=== PATIENT | female | born 1990 ===

== ENCOUNTER 2021-01-01 18:07 | Emergency (ER) | payer OTHER, SELFPAY ==
[2021-01-01 18:58] LABS: COVID-19 Test Positive (Negative); IDNOW Serial# 9DD0AD1C
[2021-01-01 19:29] VITALS: BP 133/82; PULSE 83; RESP 18; TEMP 35.9; O2SAT 98; BMI 25.6
--- NOTE | 2021-01-01 19:35 | ED_ITS ---
HPI - Nausea/Vomiting/Diarrhea General Chief complaint: Nausea/Vomiting/Diarrhea Stated complaint: covid + Time Seen by Provider: 01/01/21 19:35 Source: patient Mode of arrival: ambulatory Limitations: no limitations History of Present Illness HPI Narrative: Patient early likely 6 weeks tested positive at home test been sick for last 3 days tested positive in outpatient clinic for COVID-19 coughing no significant shortness of breath came here for increased nausea and vomiting and diarrhea for last 3 days unable take anything p.o.. No abdominal pain no vaginal bleed Related Data Previous Rx's Medication Instructions Recorded ondansetron 4 mg disintegrating 4 mg PO Q6-8H PRN #15 tab 01/01/21 tablet Allergies Allergy/AdvReac Type Severity Reaction Status Date / Time No Known Allergies Allergy Mild N/A Unverified 01/17/20 16:48 Review of Systems Review of Systems: Yes all other systems are reviewed and are negative PMFSH Social History Social History Advance Directives: No Advance Directives Information Provided: No Patient : Yes (unconfirmed) Physical Exam Vital Signs: Vital Signs: Last Vital Signs Temp 96.6 F L 01/01/21 19:29 Pulse 83 01/01/21 19:29 Resp 18 01/01/21 19:29 BP 133/82 01/01/21 19:29 Pulse Ox 98 01/01/21 19:29 Body Mass Index 25.6 Appearance: Alert. Oriented X3. No acute distress. Eyes: No pallor or icterus ENT: Pharynx normal. Oral Mucosa moist Neck: Normal inspection. Neck supple. CVS: Normal heart rate and rhythm. Pulses normal. Respiratory: No respiratory distress. Equal air entry bilateral, no wheezing/rales/rhonchi Abdomen: Soft and nontender. Bowel sounds are present, no mass palpable, no CVA tenderness Skin: Skin warm and dry. Normal skin color. Normal skin turgor. Extremities: No lower extremity edema. No calf tenderness Neuro: Oriented X 3. MDM - Nausea/Vomiting/Diarrhea MDM Narrative Medical decision making narrative: Patient felt better after 2 L of IV fluids taking p.o. fluids will discharge patient home Lab Data Attestation: I reviewed the patient's lab results. Result diagrams: 01/01/21 20:35 01/01/21 20:35 Labs: Lab Results 01/01/21 01/01/21 01/01/21 Range/Units 18:30 18:38 20:35 WBC 5.4 (4.8-10.8) X10*3/uL RBC 4.74 (4.20-5.50) X10*6/uL Hgb 15.9 (12.0-16.0) g/dl Hct 45.8 (37-47) % MCV 96.6 (80-98) fL MCH 33.5 H (27.0-33.0) pg MCHC 34.7 (31.0-35.0) g/dl RDW 11.4 (11.0-16.0) % Plt Count 140 L (160-400) X10*3/uL MPV 10.2 (9.4-12.3) fL Immature Gran % (Auto) 0.2 (0.0-0.4) % Neut % (Auto) 64.8 (45-73) % Lymph % (Auto) 25.6 (20-40) % [place] % (Auto) 9.4 (2-11) % Eos % (Auto) 0.0 (0-4) % Baso % (Auto) 0.0 (0-2) % Lymph # (Auto) 1.4 (1.2-4.9) X10*3/uL [place] # (Auto) 0.5 (0.1-1.2) X10*3/uL Eos # (Auto) 0.0 (0.0-0.4) X10*3/uL Baso # (Auto) 0.0 (0.0-0.2) X10*3/uL Abs Immat Gran (auto) 0.01 (0.00-0.03) X10*3/uL Absolute Neuts (auto) 3.5 (2.0-8.3) X10*3/uL Absolute Nucleated RBC 0.000 (0.0-0.012) X10*3/uL Nucleated RBC % (auto) 0.0 (0.0-0.2) /100WBC Sodium (135-145) mmol/L Potassium (3.3-5.1) mmol/L Chloride (96-108) mmol/L Carbon Dioxide (22-29) mmol/L Anion Gap (12-20) BUN (9-16) mg/dL Creatinine (0.5-1.4) mg/dL Estim Creat Clear Calc Estimated GFR Random Glucose (60-115) mg/dL Calcium (8.4-10.2) mg/dL Beta HCG, Quant mIU/mL Urine Color YELLOW Urine Appearance HAZY Urine pH 6.0 (5.0-8.0) Ur Specific [place] >= 1.030 H (1.005-1.025) Urine Protein 2+ H (NEG-TRACE) MG/DL Urine Glucose (UA) NEG (NEG) MG/DL Urine Ketones >=80 (NEG) MG/DL Urine Blood NEG (NEG) Urine Nitrite NEG (NEG) Ur Leukocyte Esterase NEG (NEG) Urine RBC 0 (0) /HPF Urine WBC 0 (0-4) /HPF Ur Squamous Epith Cells 1+ /LPF Urine Bacteria 1+ /LPF Urine Mucus TRACE /LPF COVID-19 ([facility]IA[facility]) Positive A (Negative) COVID-19 Clin Com See Note 01/01/21 01/01/21 Range/Units 20:35 20:35 WBC (4.8-10.8) X10*3/uL RBC (4.20-5.50) X10*6/uL Hgb (12.0-16.0) g/dl Hct (37-47) % MCV (80-98) fL MCH (27.0-33.0) pg MCHC (31.0-35.0) g/dl RDW (11.0-16.0) % Plt Count (160-400) X10*3/uL MPV (9.4-12.3) fL Immature Gran % (Auto) (0.0-0.4) % Neut % (Auto) (45-73) % Lymph % (Auto) (20-40) % [place] % (Auto) (2-11) % Eos % (Auto) (0-4) % Baso % (Auto) (0-2) % Lymph # (Auto) (1.2-4.9) X10*3/uL [place] # (Auto) (0.1-1.2) X10*3/uL Eos # (Auto) (0.0-0.4) X10*3/uL Baso # (Auto) (0.0-0.2) X10*3/uL Abs Immat Gran (auto) (0.00-0.03) X10*3/uL Absolute Neuts (auto) (2.0-8.3) X10*3/uL Absolute Nucleated RBC (0.0-0.012) X10*3/uL Nucleated RBC % (auto) (0.0-0.2) /100WBC Sodium 140 (135-145) mmol/L Potassium 4.1 (3.3-5.1) mmol/L Chloride 105 (96-108) mmol/L Carbon Dioxide 23 (22-29) mmol/L Anion Gap 16 (12-20) BUN 9 (9-16) mg/dL Creatinine 0.52 (0.5-1.4) mg/dL Estim Creat Clear Calc 138.5 Estimated GFR > 60 Random Glucose 87 (60-115) mg/dL Calcium 9.4 (8.4-10.2) mg/dL Beta HCG, Quant 63501 mIU/mL Urine Color Urine Appearance Urine pH (5.0-8.0) Ur Specific [place] (1.005-1.025) Urine Protein (NEG-TRACE) MG/DL Urine Glucose (UA) (NEG) MG/DL Urine Ketones (NEG) MG/DL Urine Blood (NEG) Urine Nitrite (NEG) Ur Leukocyte Esterase (NEG) Urine RBC (0) /HPF Urine WBC (0-4) /HPF Ur Squamous Epith Cells /LPF Urine Bacteria /LPF Urine Mucus /LPF COVID-19 ([facility]EMIA[facility]) (Negative) COVID-19 Clin Com Discharge Plan Discharge Clinical Impression: Hyperemesis gravidarum, COVID-19 Patient Disposition: Home, Self-Care Instructions: Hyperemesis Gravidarum (ED), COVID-19 (Coronavirus Disease 2019) (ED) Additional Instructions: Status isolated as advised Medicine for nausea/vomiting Drink plenty of fluids Prescriptions: New ondansetron 4 mg tablet,disintegrating 4 mg PO Q6-8H PRN (Reason: nausea and vomiting) Qty: 15 RF: 0
[2021-01-01 20:25] LABS: Glucose Urine UA NEG (NEG); Leukocyte Esterase Urine NEG (NEG); Nitrite Urine NEG (NEG); Specific Gravity - Urine >= 1.030 (1.005-1.025); UACC Culture Trigger NO; Urine Blood NEG (NEG); Urine Ketones >=80 MG/DL (NEG); Urine Protein 2+ MG/DL (NEG-TRACE)
[2021-01-01 20:27] LABS: Appearance Urine HAZY; Color Urine YELLOW
[2021-01-01 20:35] LABS: Bacteria Urine 1+ /LPF; RBC Urine 0 /HPF (0); Squamous Epithelial Cell Urine 1+ /LPF; WBC Urine 0 /HPF (0-4)
[2021-01-01 20:36] LABS: Mucus Urine TRACE /LPF
[2021-01-01] MEDS: 0.9 % Sodium Chloride 1,000 ML 999 ML IVCONT ×2 (20:40→22:03)
[2021-01-01 20:41] LABS: Hemoglobin 15.9 g/dl (12.0-16.0); Imm Gran Abs Auto 0.01 X10*3/uL (0.00-0.03); Imm Gran Pct Auto 0.2 % (0.0-0.4); MANUAL DIFF FLAG NO; PLT CLUMP 1; SCAN SMEAR FLAG 1
[2021-01-01 20:42] LABS: Hematocrit 45.8 % (37-47); Lymphocytes Absolute Auto 1.4 X10*3/uL (1.2-4.9); Lymphocytes Percent Auto 25.6 % (20-40); Mean Corpuscular HGB Conc 34.7 g/dl (31.0-35.0); Mean Corpuscular Hemoglobin 33.5 pg (27.0-33.0); Mean Corpuscular Volume 96.6 fL (80-98); Mean Platelet Volume 10.2 fL (9.4-12.3); Monocytes Absolute Auto 0.5 X10*3/uL (0.1-1.2); Monocytes Percent Auto 9.4 % (2-11); Neutrophils Absolute Auto 3.5 X10*3/uL (2.0-8.3); Neutrophils Percent Auto 64.8 % (45-73); Platelet Count 140 X10*3/uL (160-400); Red Blood Count 4.74 X10*6/uL (4.20-5.50); Red Cell Distribution Width 11.4 % (11.0-16.0); White Blood Count 5.4 X10*3/uL (4.8-10.8)
[2021-01-01 20:53] LABS: Anion Gap 16 (12-20); Blood Urea Nitrogen 9 mg/dL (9-16); Calcium 9.4 mg/dL (8.4-10.2); Carbon Dioxide 23 mmol/L (22-29); Chloride 105 mmol/L (96-108); Creatinine Clr Calc Pharmacy 138.5; Estimated Glomerular Filt Rate > 60; Glucose Random 87 mg/dL (60-115); Potassium 4.1 mmol/L (3.3-5.1); Sodium 140 mmol/L (135-145)
[2021-01-01 21:01] LABS: HCG Quantitative 11911 mIU/mL
[2021-01-01] MEDS: ondansetron HCL 4 MG/2 ML VIAL IVPUSH (21:31)
== END 2021-01-01 23:24 | disposition home or self-care (01) ==
PROVIDERS: Emergency Provider Internal Medicine; PCP Internal Medicine
DX: O98.511 Other viral diseases complicating pregnancy, first trimester (principal); U07.1 COVID-19; Z3A.01 Less than 8 weeks gestation of pregnancy
CPT/HCPCS: 36415; 80048; 81001; 84702; 85025; 87635; 96361; 96374; 99284; J2405

== ENCOUNTER 2021-01-05 21:35 | Emergency (ER) | payer OTHER, SELFPAY ==
[2021-01-05 21:42] VITALS: BP 116/80; PULSE 82; O2SAT 100
[2021-01-05 21:45] VITALS: BP 100/67; PULSE 84; RESP 20; TEMP 36.6; O2SAT 98; BMI 27.4
--- NOTE | 2021-01-05 23:30 | ED.NAVMDI ---
HPI - Nausea/Vomiting/Diarrhea General Chief complaint: Nausea/Vomiting/Diarrhea Stated complaint: covid nausea vomiting Time Seen by Provider: 01/05/21 22:55 Source: patient Mode of arrival: ambulatory Limitations: no limitations History of Present Illness HPI Narrative: 30 y/o female who is 6 weeks presents with ongoing nausea and vomiting for the last 11 days. She was recently COVID positive over two weeks ago and still had a positive test a few days ago. She has had multiple ER visits here and at [place] for the same complaint. She has been taking zofran with only brief improvement. She is not able to tolerate PO without vomiting. She is sleeping a lot and has no energy. She last took zofran 5 hours ago. She does not want to be and has a planned termination at [facility] on Tuesday. MD elicited complaint: nausea and vomiting Onset (ago): day(s) (11) Description of vomiting: food contents, watery and bilious Associated nausea: Yes Associated abdominal pain: Yes Location of pain: diffuse Radiation: diffuse Pain consistency: intermittent Severity: severe Quality: aching Exacerbating factors: eating Relieving factors: none Associated symptoms: myalgias and malaise Related Data Previous Rx's Medication Instructions Recorded ondansetron 4 mg disintegrating 4 mg PO Q6-8H PRN #15 tab 01/01/21 tablet promethazine 25 mg rectal 25 mg DE Q6H PRN #12 ea 01/05/21 suppository Allergies Allergy/AdvReac Type Severity Reaction Status Date / Time No Known Allergies Allergy Mild N/A Unverified 01/05/21 21:51 Review of Systems Review of Systems: Constitutional: No Fever, No Chills ENT/Mouth: No sore throat, No Swallowing Difficulty Cardiovascular: No Chest Pain, No SOB, No Orthopnea, No Edema Respiratory: No Cough, No Sputum, No Wheezing, No dyspnea Gastrointestinal: + Nausea, + Vomiting, No Diarrhea, + abdominal Pain Genitourinary: No Dysuria, No Urinary Frequency, No Hematuria Musculoskeletal: No joint pain, No Myalgias Skin: No Skin Lesions, No rash Neuro:+ Weakness, No Numbness, No Dizziness, +Headache Psych: + Anxiety/Panic, + Depression Heme/Lymph: No Bruising, No Lymphadenopathy Endocrine: No Polyuria, No Polydipsia Gastrointestinal: Gastrointestinal: Reports nausea PMFSH Social History Social History Advance Directives: No Advance Directives Information Provided: No Patient : Yes Physical Exam Vital Signs: Vital Signs: Last Vital Signs Temp 97.9 F 01/05/21 21:45 Pulse 84 01/05/21 21:45 Resp 20 01/05/21 21:45 BP 100/67 01/05/21 21:45 Pulse Ox 98 01/05/21 21:45 Body Mass Index 27.4 Appearance: Alert. Oriented X3. No acute distress. Eyes: Pupils equal, round and reactive to light. ENT: Pharynx normal. Neck: Normal inspection. Neck supple. CVS: Normal heart rate and rhythm. Pulses normal. Respiratory: No respiratory distress. Breath sounds normal. Abdomen: Soft and nontender. +BS x4 Skin: Skin warm and dry. Normal skin color. Normal skin turgor. No rashes. Extremities: No lower extremity edema. Neuro: Oriented X 3. Generalized weakness noted. Nonfocal Course Course Course Narrative: 30 y/o female who is 6 weeks presents with persistent N/V. She was seen here for the same on 01/01. Labs were unremarkable. VS normal and exam is unremarkable. She is planning to terminate the on Tuesday. Will start trial of [place] phenergan until she can have her procedure. Tolerating ice chips. Stable for discharge home. Critical Care Time Critical Care Time Critical Care Time: No Discharge Plan Discharge Clinical Impression: Hyperemesis gravidarum Patient Disposition: Home, Self-Care Instructions: Hyperemesis Gravidarum (ED) Additional Instructions: Use the prescribed rectal suppository medication starting tomorrow morning. Stick to a bland diet, crackers and soup. Follow up with [facility]. Prescriptions: New promethazine 25 mg suppository 25 mg DE Q6H PRN (Reason: nausea and vomiting) Qty: 12 RF: 0 No Action ondansetron 4 mg tablet,disintegrating 4 mg PO Q6-8H PRN (Reason: nausea and vomiting) Qty: 15 RF: 0 Interventions: ED Discharge Assessment Last Done: 01/05/21 23:46 Discharge Date/Time: 01/06/21 00:00
[2021-01-05] MEDS: Ondansetron ODT 4 MG TAB.RAPDIS TRANSLINGU (23:43)
--- NOTE | 2021-01-05 23:45 | PC.NURSE ---
Pt medicated per JUN. Provided with DC paperwork. Awaiting transport home.
== END 2021-01-06 | disposition home or self-care (01) ==
PROVIDERS: Emergency Provider Emergency Medicine; PCP Internal Medicine
DX: O21.0 Mild hyperemesis gravidarum (principal); Z3A.01 Less than 8 weeks gestation of pregnancy
CPT/HCPCS: 99283

== ENCOUNTER 2022-01-17 06:27 | Emergency (ER) | payer OTHER, SELFPAY ==
--- NOTE | ~2022-01-17 | US_ITS ---
EXAMINATION: US OBSTETRICAL ULTRASOUND CLINICAL INFORMATION: Vaginal bleeding, 11 weeks COMPARISON: None. Transvaginal study. Real-time imaging by the director oracle. Exam demonstrates a gestational sac and a pole. Measures 0.95 cm. This may correlate to a 7 week . No heart activity is detected by the director oracle at this time No suspicious fluid collection. The right ovary is 3.8 x 2.2 x 2.2 cm. 1.5 x 2.1 cm cyst associated could be a corpus luteum. Left ovary is 2.2 x 1.6 x 1.7 cm. Appearing. No free fluid is seen. US/US OB pelvic and transvaginal IMPRESSION: There is a gestational sac and crown-rump length. By measurements this may correlate to a 7 week . No heart rate is detected by the director oracle at this time
[2022-01-17 06:51] VITALS: BP 124/61; PULSE 82; RESP 18; TEMP 36.7; O2SAT 99; BMI 26.5
[2022-01-17 09:10] LABS: MANUAL DIFF FLAG NO
[2022-01-17 09:11] LABS: Basophils Absolute Auto 0.1 X10*3/uL (0.0-0.2); Basophils Percent Auto 0.8 % (0-2); Eosinophils Absolute Auto 0.1 X10*3/uL (0.0-0.4); Eosinophils Percent Auto 1.4 % (0-4); Hematocrit 41.1 % (37.0-47.0); Hemoglobin 14.1 g/dl (12.0-16.0); Imm Gran Abs Auto 0.02 X10*3/uL (0.00-0.03); Imm Gran Pct Auto 0.3 % (0.0-0.4); Lymphocytes Absolute Auto 1.6 X10*3/uL (1.2-4.9); Lymphocytes Percent Auto 24.3 % (20-40); Mean Corpuscular HGB Conc 34.3 g/dl (31.0-35.0); Mean Platelet Volume 9.9 fL (9.4-12.3); Monocytes Absolute Auto 0.4 X10*3/uL (0.1-1.2); Monocytes Percent Auto 6.1 % (2-11); Neutrophils Absolute Auto 4.3 x10*3/uL (2.0-8.3); Neutrophils Percent Auto 67.1 % (45-73); Platelet Count 192 X10*3/uL (160-400); Red Blood Count 4.15 X10*6/uL (4.20-5.50); Red Cell Distribution Width 11.7 % (11.0-16.0); White Blood Count 6.4 X10*3/uL (4.8-10.8)
[2022-01-17 09:39] LABS: Alanine Aminotransferase 20 U/L (0-31); Albumin Level 4.3 g/dL (3.5-5.0); Alkaline Phosphatase 62 U/L (39-117); Anion Gap 12 (12-20); Aspartate Amino Transferase 16 U/L (5-31); Blood Urea Nitrogen 7 mg/dL (9-16); Calcium 9.2 mg/dL (8.4-10.2); Carbon Dioxide 26 mmol/L (22-29); Chloride 104 mmol/L (96-108); Creatinine Clr Calc Pharmacy 118.8; Estimated Glomerular Filt Rate > 60; Glucose Random 90 mg/dL (60-115); Potassium 3.9 mmol/L (3.3-5.1); Sodium 138 mmol/L (135-145); Total Protein 7.1 g/dL (6.5-8.0)
[2022-01-17 09:45] LABS: HCG Quantitative 10153 mIU/mL
--- NOTE | 2022-01-17 11:02 | ED.GENADULT ---
HPI - General Adult General Chief complaint: Vaginal Bleeding Stated complaint: vaginal bleeding, Time Seen by Provider: 01/17/22 08:50 Source: patient Mode of arrival: ambulatory Limitations: no limitations History of Present Illness HPI narrative: 31-year-old female presents to the ED for lower abdominal cramping and vaginal bleeding/spotting. Patient denies any vaginal lesions or vaginal pelvic trauma, any recent rough sex. Patient states she follows at [facility]. Patient denies any nausea or vomiting Related Data Previous Rx's Medication Instructions Recorded ondansetron 4 mg disintegrating 4 mg PO Q6-8H PRN nausea and 01/01/21 tablet vomiting #15 tabs promethazine 25 mg rectal 25 mg IN Q6H PRN nausea and 01/05/21 suppository vomiting #12 ea nitrofurantoin 100 mg PO Q12H 7 days #14 caps 01/17/22 monohydrate/macrocrystals 100 mg capsule (Macrobid) Allergies Allergy/AdvReac Type Severity Reaction Status Date / Time No Known Allergies Allergy Mild N/A Verified 01/17/22 06:51 Review of Systems Review of Systems: Lower abdominal cramping. Vaginal spotting/bleeding Yes all other systems are reviewed and are negative PMFSH Social History Social History Advance Directives: No Advance Directives Information Provided: No Physical Exam ED Vital Signs: Vital Signs - 24 hr 01/17/22 06:51 Temperature 98.1 F Pulse Rate 82 Respiratory Rate 18 Blood Pressure 124/61 Pulse Oximetry 99 Oxygen Delivery Method Room Air BMI result Body Mass Index 26.5 Const General: cooperative, healthy appearing, comfortable, no acute distress, well developed, alert, awake and Physically active Orientation/consciousness: patient oriented x3 HENMT Head: Yes normal to inspection, Yes No palpable skull fracture present, Yes normocephalic, Yes atraumatic and No abrasion Eyes General: appearance normal, both eyes and all related structures Neck Neck: Yes normal visual inspection, Yes full ROM, Yes no lymphadenopathy, Yes no meningeal signs, Yes trachea midline, Yes supple, No anterior neck swelling and No tender Chest Chest palpation & inspection: normal inspection of the chest and normal palpation of entire chest wall Resp Effort & Inspection: normal respiratory effort and able to speak in complete sentences Auscultation: clear to auscultation bilaterally Cardio Jugular venous distension: no JVD Heart sounds: S1 normal heart sound present and S2 normal heart sound present GI Inspection: Yes normal to inspection and No abdominal wall ecchymosis Palpation (GI): Soft to palpation, not firm, nontender, no guarding, not rigid and hepatosplenomegaly present General: No CVA tenderness and Yes no CVA tenderness Back/Spine/Pelvis Back: no CVA tenderness, No CVA tenderness and No back tenderness Skin General skin exam: no rashes or lesions noted and elasticity normal Neuro General: patient oriented x3, gait normal, no meningeal signs and CN's II-XI intact bilaterally Cranial nerves: Yes CN's II-XII intact bilaterally Extrem General: Yes normal to inspection and Yes full ROM Psych Appearance: grossly normal, well kempt and not disheveled Course Course Course Narrative: Patient is stable. Labs drawn. Patient is sent for ultrasound Reevaluation(s) Reevaluation #1: Patient labs are baseline. Patient's ultrasound shows 7 weeks gestational sac with pole but no heart rate. Patient refused pelvic exam. Patient follow-up with [facility]. Urine shows infection will be discharged with antibiotics. patient given copy of labs and imaging for follow up. Time: 12:55 Medical Decision Making MDM Narrative Medical decision making narrative: Threatened Lab Data Result diagrams: 01/17/22 09:05 01/17/22 09:05 Labs: Lab Results 01/17/22 01/17/22 01/17/22 Range/Units 09:05 09:05 09:05 WBC 6.4 (4.8-10.8) X10*3/uL RBC 4.15 L (4.20-5.50) X10*6/uL Hgb 14.1 (12.0-16.0) g/dl Hct 41.1 (37.0-47.0) % MCV 99.0 H (80.0-98.0) fL MCH 34.0 H (27.0-33.0) pg MCHC 34.3 (31.0-35.0) g/dl RDW 11.7 (11.0-16.0) % Plt Count 192 (160-400) X10*3/uL MPV 9.9 (9.4-12.3) fL Immature Gran % (Auto) 0.3 (0.0-0.4) % Neut % (Auto) 67.1 (45-73) % Lymph % (Auto) 24.3 (20-40) % [place] % (Auto) 6.1 (2-11) % Eos % (Auto) 1.4 (0-4) % Baso % (Auto) 0.8 (0-2) % Lymph # (Auto) 1.6 (1.2-4.9) X10*3/uL [place] # (Auto) 0.4 (0.1-1.2) X10*3/uL Eos # (Auto) 0.1 (0.0-0.4) X10*3/uL Baso # (Auto) 0.1 (0.0-0.2) X10*3/uL Abs Immat Gran (auto) 0.02 (0.00-0.03) X10*3/uL Absolute Neuts (auto) 4.3 (2.0-8.3) x10*3/uL Absolute Nucleated RBC 0.000 (0.0-0.012) X10*3/uL Nucleated RBC % (auto) 0.0 (0.0-0.2) /100WBC Sodium 138 (135-145) mmol/L Potassium 3.9 (3.3-5.1) mmol/L Chloride 104 (96-108) mmol/L Carbon Dioxide 26 (22-29) mmol/L Anion Gap 12 (12-20) BUN 7 L (9-16) mg/dL Creatinine 0.61 (0.5-1.4) mg/dL Estim Creat Clear Calc 118.8 Estimated GFR > 60 Random Glucose 90 (60-115) mg/dL Calcium 9.2 (8.4-10.2) mg/dL Total Bilirubin 1.0 (0.0-1.0) mg/dL AST 16 (5-31) U/L ALT 20 (0-31) U/L Alkaline Phosphatase 62 (39-117) U/L Total Protein 7.1 (6.5-8.0) g/dL Albumin 4.3 (3.5-5.0) g/dL Beta HCG, Quant 27443 mIU/mL Urine Color Urine Appearance Urine pH (5.0-9.0) Ur Specific [place] (1.005-1.025) Urine Protein (Neg-Trace) mg/dL Urine Glucose (UA) (Negative) mg/dL Urine Ketones (Negative) mg/dL Urine Blood (Negative) Urine Nitrite (Negative) Ur Leukocyte Esterase (Negative) Urine RBC (0-2) /HPF Urine WBC (0-5) /HPF Ur Squamous Epith Cells (0-2) /HPF Urine Bacteria (None Seen) Hyaline Casts (0-2) /LPF Blood Type B Positive 01/17/22 Range/Units 12:42 WBC (4.8-10.8) X10*3/uL RBC (4.20-5.50) X10*6/uL Hgb (12.0-16.0) g/dl Hct (37.0-47.0) % MCV (80.0-98.0) fL MCH (27.0-33.0) pg MCHC (31.0-35.0) g/dl RDW (11.0-16.0) % Plt Count (160-400) X10*3/uL MPV (9.4-12.3) fL Immature Gran % (Auto) (0.0-0.4) % Neut % (Auto) (45-73) % Lymph % (Auto) (20-40) % [place] % (Auto) (2-11) % Eos % (Auto) (0-4) % Baso % (Auto) (0-2) % Lymph # (Auto) (1.2-4.9) X10*3/uL [place] # (Auto) (0.1-1.2) X10*3/uL Eos # (Auto) (0.0-0.4) X10*3/uL Baso # (Auto) (0.0-0.2) X10*3/uL Abs Immat Gran (auto) (0.00-0.03) X10*3/uL Absolute Neuts (auto) (2.0-8.3) x10*3/uL Absolute Nucleated RBC (0.0-0.012) X10*3/uL Nucleated RBC % (auto) (0.0-0.2) /100WBC Sodium (135-145) mmol/L Potassium (3.3-5.1) mmol/L Chloride (96-108) mmol/L Carbon Dioxide (22-29) mmol/L Anion Gap (12-20) BUN (9-16) mg/dL Creatinine (0.5-1.4) mg/dL Estim Creat Clear Calc Estimated GFR Random Glucose (60-115) mg/dL Calcium (8.4-10.2) mg/dL Total Bilirubin (0.0-1.0) mg/dL AST (5-31) U/L ALT (0-31) U/L Alkaline Phosphatase (39-117) U/L Total Protein (6.5-8.0) g/dL Albumin (3.5-5.0) g/dL Beta HCG, Quant mIU/mL Urine Color Yellow Urine Appearance Cloudy Urine pH 7.5 (5.0-9.0) Ur Specific [place] 1.015 (1.005-1.025) Urine Protein Trace (Neg-Trace) mg/dL Urine Glucose (UA) Negative (Negative) mg/dL Urine Ketones 40 (Negative) mg/dL Urine Blood Large (3+) H (Negative) Urine Nitrite Negative (Negative) Ur Leukocyte Esterase Moderate (2+) H (Negative) Urine RBC >20 H (0-2) /HPF Urine WBC 21-50 H (0-5) /HPF Ur Squamous Epith Cells 3-5 (0-2) /HPF Urine Bacteria 1+ (None Seen) Hyaline Casts 0-2 (0-2) /LPF Blood Type Discharge Plan Discharge Clinical Impression: Threatened , UTI (urinary tract infection) Patient Disposition: Home, Self-Care Instructions: Threatened Miscarriage (ED), Urinary Tract Infection in (ED) Additional Instructions: Urine shows urinary tract infection. Ultrasound shows 7 week but no heartbeat. UE to repeat ultrasound and hormone blood test within the next 48 hours. Return to the ED for worsening abdominal pain, profuse vaginal bleeding, weakness, dizziness, shortness of breath, or any other concerning symptoms. Please follow-up with your treating ED health OBGYN provider. Keep your appointment that you are having on Tuesday. Prescriptions: New nitrofurantoin monohyd/m-cryst [Macrobid] 100 mg capsule 100 mg PO Q12H 7 Days Qty: 14 0RF Rx Instructions: must administer with a meal/food No Action ondansetron 4 mg tablet,disintegrating 4 mg PO Q6-8H PRN (Reason: nausea and vomiting) Qty: 15 0RF promethazine 25 mg suppository 25 mg IN Q6H PRN (Reason: nausea and vomiting) Qty: 12 0RF Stand Alone Forms: Work/School Release Interventions: ED Discharge Assessment Last Done: 01/17/22 13:21 Discharge Date/Time: 01/17/22 13:22 Print Language: Luxembourgish
[2022-01-17 12:49] LABS: Appearance Urine Cloudy; Color Urine Yellow; Glucose Urine UA Negative (Negative); Leukocyte Esterase Urine Moderate (2+) (Negative); Nitrite Urine Negative (Negative); PH 7.5 (5.0-9.0); Specific Gravity - Urine 1.015 (1.005-1.025); UMIC TRIGGER UACC YES; Urine Blood Large (3+) (Negative); Urine Ketones 40 mg/dL (Negative); Urine Protein Trace mg/dL (Neg-Trace)
[2022-01-17 13:01] LABS: Bacteria Urine 1+ (None Seen); Hyaline Casts Urine 0-2 /LPF (0-2); RBC Urine >20 /HPF (0-2); UACC Culture Trigger YES; WBC Urine 21-50 /HPF (0-5)
== END 2022-01-17 13:22 | disposition home or self-care (01) ==
PROVIDERS: Emergency Provider Emergency Medicine; PCP Internal Medicine
DX: O20.9 Hemorrhage in early pregnancy, unspecified (principal); Z3A.11 11 weeks gestation of pregnancy; Z79.899 Other long term (current) drug therapy
CPT/HCPCS: 36415; 76801; 76817; 80053; 81001; 84702; 85025; 86900; 86901; 87086; 99282; 99284

== ENCOUNTER 2022-10-21 17:32 | Emergency (ER) | payer OTHER, SELFPAY ==
[2022-10-21] VITALS (8 sets, daily range): BP systolic 93–126; BP diastolic 54–76; PULSE 72–85; RESP 12–19; TEMP 36.3–36.7; O2SAT 98–100; BMI 27.8
--- NOTE | ~2022-10-21 | US_ITS ---
EXAMINATION: RENAL ULTRASOUND CLINICAL INFORMATION: Left lower quadrant pain. History of kidney stones. COMPARISON: None. TECHNIQUE: Real-time imaging of the left kidney only. FINDINGS: LEFT KIDNEY: 10.9 x 5.2 x 5.0 cm (SAG x AP x TRV). The kidney is normal in size, contour and echogenicity. Renal cortical thickness is normal. No calculi or focal parenchymal lesions. No hydronephrosis. US/US renal LT IMPRESSION: Sonographically unremarkable left kidney.
--- NOTE | ~2022-10-21 | US_ITS ---
US pelvic ovarian doppler, US OB limited History: Left lower quadrant pain. LMP 05/17/2022, corresponding 20 gestational age of 22 weeks and 3 days. Technique: Transvaginal ultrasound of pelvis was performed with angelo scale, color, and limited pulsed Doppler interrogation. Comparison: 01/17/2022. Findings: There is a single live intrauterine gestation with a heart rate of 133 beats per minutes. Evaluation was not performed for assessment of the anatomy nor other biometric measurements, a complete OB ultrasound referral could be obtained as clinically indicated. The fetus demonstrates motion and variable positioning during the examination. The cervical os is closed and the cervical length measures 4.4 cm. The maternal ovaries are normal in morphology with preserved flow on color and spectral Doppler at the moment of this examination. The right ovary measures 2 x 2 0.3 x 1.8 cm, 4.4 mL and the left ovary measures 3.2 x 2.3 x 1.7 cm, 6.8 mL. No adnexal mass. No free fluid. US/US OB limited Impression: Single live intrauterine gestation with a heart rate of 133 bpm. No acute sonographic abnormalities. As above, the examination was not targeted for evaluation of the anatomy nor biometric measurements, for which a complete OB ultrasound referral could be obtained as clinically indicated.
--- NOTE | ~2022-10-21 | US_ITS ---
US pelvic ovarian doppler, US OB limited History: Left lower quadrant pain. LMP 05/17/2022, corresponding 20 gestational age of 22 weeks and 3 days. Technique: Transvaginal ultrasound of pelvis was performed with angelo scale, color, and limited pulsed Doppler interrogation. Comparison: 01/17/2022. Findings: There is a single live intrauterine gestation with a heart rate of 133 beats per minutes. Evaluation was not performed for assessment of the anatomy nor other biometric measurements, a complete OB ultrasound referral could be obtained as clinically indicated. The fetus demonstrates motion and variable positioning during the examination. The cervical os is closed and the cervical length measures 4.4 cm. The maternal ovaries are normal in morphology with preserved flow on color and spectral Doppler at the moment of this examination. The right ovary measures 2 x 2 0.3 x 1.8 cm, 4.4 mL and the left ovary measures 3.2 x 2.3 x 1.7 cm, 6.8 mL. No adnexal mass. No free fluid. US/US pelvic ovarian doppler Impression: Single live intrauterine gestation with a heart rate of 133 bpm. No acute sonographic abnormalities. As above, the examination was not targeted for evaluation of the anatomy nor biometric measurements, for which a complete OB ultrasound referral could be obtained as clinically indicated.
--- NOTE | 2022-10-21 17:38 | ED.GENADULT ---
HPI - General Adult General Chief complaint: General Medical Stated complaint: sharp abd pain/5 1/2 months Time Seen by Provider: 10/21/22 17:46 Source: patient Mode of arrival: ambulatory Limitations: no limitations History of Present Illness HPI narrative: [id number] due to US and delivery date of 02/27/23 here with c/o LLQ pain starting abruptly this AM, some nausea no vomiting. able to urinate, denies back pain has had prior kidney stones in the past and this reminds her of that. no fevers. no vaginal bleeding and + FM MD complaint: LLQ pain Onset (ago): hour(s) (1) Location: abdomen Radiation: non-radiation Severity: moderate Quality: stabbing Pain Consistency: constant Relieving factors: none Exacerbating factors: none Associated symptoms: nausea/vomiting Treatments prior to arrival: none Related Data Previous Rx's Medication Instructions Recorded ondansetron 4 mg disintegrating 4 mg PO Q6-8H PRN nausea and 01/01/21 tablet vomiting #15 tabs promethazine 25 mg rectal 25 mg UT Q6H PRN nausea and 01/05/21 suppository vomiting #12 ea nitrofurantoin 100 mg PO Q12H 7 days #14 caps 01/17/22 monohydrate/macrocrystals 100 mg capsule (Macrobid) cephalexin 500 mg capsule 500 mg PO TID 5 days #15 caps 10/21/22 morphine 15 mg immediate release 15 mg PO Q4-6H PRN pain #10 tabs 10/21/22 tablet tamsulosin 0.4 mg capsule (Flomax) 0.4 mg PO DAILY #14 caps 10/21/22 Allergies Allergy/AdvReac Type Severity Reaction Status Date / Time No Known Allergies Allergy Mild N/A Verified 01/17/22 06:51 Review of Systems Review of Systems: Constitutional : No Weight loss, No Fever, No Chills ENT/Mouth : No sore throat, No Rhinorrhea Eyes: No Swelling, No Redness Cardiovascular : No Chest Pain, No SOB, NoEdema Respiratory : No Cough, No Sputum, No Wheezing Gastrointestinal : Positive Nausea, no Vomiting, no Diarrhea, positive abdominal Pain, No Hematochezia, No Melena Genitourinary : No Dysuria, No Urinary Frequency, No Hematuria, No Urgency Musculoskeletal : No joint pain, No Myalgias, No Joint Swelling Skin : No Skin Lesions, No rash Neuro : No Weakness, No Numbness, No Dizziness, No Headache Psych : No Anxiety/Panic, No Depression Heme/Lymph: No Bruising, No Lymphadenopathy Endocrine : No Polyuria, No Polydipsia All other systems reviewed and are negative. [facility] Past Medical History Attestation statement: The following information was validated with the patient. Medical History (Updated 10/21/22 @ 23:18 by Ronal Ramirez MD) Renal colic Social History Social History (Updated 10/21/22 @ 18:18 by Mary Jane Mills DO) Patient Tobacco Use Status: Never used Tobacco Smoked in Last 30 Days: No Use of substances other than those prescribed or required for medical reasons: No Advance Directives: No Advance Directives Information Provided: No Patient : Yes Physical Exam ED Vital Signs: Vital Signs - 24 hr 10/21/22 17:36 10/21/22 18:22 10/21/22 20:02 Temperature 98.1 F 97.6 F Pulse Rate 85 83 Respiratory Rate 18 19 12 Blood Pressure 126/70 113/76 Pulse Oximetry 98 100 Oxygen Delivery Method Room Air Room Air 10/21/22 20:42 10/21/22 21:47 10/21/22 21:48 Temperature 97.4 F Pulse Rate 72 Respiratory Rate 17 14 14 Blood Pressure 93/54 L Pulse Oximetry 100 Oxygen Delivery Method Room Air 10/21/22 22:54 Temperature Pulse Rate Respiratory Rate 16 Blood Pressure Pulse Oximetry Oxygen Delivery Method BMI result Body Mass Index 27.8 Appearance: Alert. Oriented X3. No acute distress. Eyes: Pupils equal, round and reactive to light. ENT: Pharynx normal. Neck: Normal inspection. Neck supple. CVS: Normal heart rate and rhythm. Pulses normal. Respiratory: No respiratory distress. Breath sounds normal. Abdomen: Soft and mild LLQ pain gravid uterus umbilicus Skin: Skin warm and dry. Normal skin color. Normal skin turgor. Extremities: No lower extremity edema. No calf ttp Neuro: Oriented X 3. No motor deficit. No sensory deficit. Course Course Course Narrative: This is an RME: Additional HPI, ROS, PE not included below will be deferred to primary provider. This is a [id number], - ?23-24 weeks , presenting to the ER for evaluation of sharp LLQ pain x 30 minutes ago. No vaginal bleeding or discharge. No N/V/D. No problems with thus far. Has been followed by OBGYN at [facility]. Plan: Labs, UA, US ovarian doppler, OB 2308: I assumed care of this patient from my colleague, Dr. Mills at 22:00 hours. I did interview and examine the patient. Patient is a 32-year-old female 21 weeks 4 days . Patient gets her OBGYN care at [facility]. Patient states that she worked until 17:00, she went home and was sitting on the toilet. She moved her bowels and urinated and then developed sudden onset of left lower groin pain with pain that ventrally radiated to her left flank. The pain was sharp, constant and 10/10. Patient states the pain felt similar to a kidney stone that she had on the right side during her 1st . Patient did receive morphine 2 mg IV x2 doses, Zofran 4 mg IV x1 dose and ceftriaxone 1 g IV. She also received normal saline IV x2 L. Patient's CBC, CMP and lipase were normal. Urinalysis/microscopic revealed moderate leukocyte esterase, 6-10 RBCs, 21-50 WBCs, 20 squamous cells. Left kidney ultrasound was normal pain. OB ultrasound was normal with a single intrauterine with heart rate of 133 beats per minute. I did discuss the patient's presentation with the [facility] OBGYN physician, Dr. Zully Lim. We both felt that this presentation was more consistent with a kidney stone then premature contractions and that the patient did not require monitoring at this time. The patient will be treated with Flomax 0.4 mg once a day for 2 weeks, Tylenol and morphine for pain not relieved by Tylenol. Patient will also be treated with Keflex g 3 times a day for 5 days for possible urinary tract infection. Patient will be referred to our urologist for follow-up. I did tell the patient however that she may need to get a urologist at [facility] since we do not have OBGYN services here at this facility. Reevaluation(s) Reevaluation #1: + UA will order ceftriaxone still has LLQ pain will discuss with her OBGYN Reevaluation #2: repeat calls to OB, states she still has pain Reevaluation #3: signed out to Dr. Ramirez pending OB call Medications Administered Discontinued Medications Generic Name Dose Route Start Last Admin Trade Name Gayathri PRN Reason Stop Dose Admin Acetaminophen 650 mg 10/21/22 19:41 10/21/22 20:01 Acetaminophen 325 Mg Tablet PO 10/21/22 19:42 650 mg ONCE ONE Administration Sodium Chloride 1,000 mls @ 999 mls/hr 10/21/22 18:00 10/21/22 20:42 Ns IV 10/21/22 19:00 Infused .Q1H1M JATIN Infusion Ceftriaxone Sodium 1 gm/ 50 mls @ 100 mls/hr 10/21/22 20:10 10/21/22 21:20 Sodium Chloride IV 10/21/22 20:39 Infused ONCE ONE Infusion Sodium Chloride 1,000 mls @ 999 mls/hr 10/21/22 21:00 10/21/22 22:54 Ns IV 10/21/22 22:00 Infused .Q1H1M JATIN Infusion Morphine Sulfate 2 mg 10/21/22 17:54 10/21/22 18:45 Morphine Sulfate 2 Mg/Ml Cartridge IVPUSH 10/21/22 17:55 2 mg ONCE ONE Administration Protocol Morphine Sulfate 2 mg 10/21/22 21:25 10/21/22 21:48 Morphine Sulfate 2 Mg/Ml Cartridge IVPUSH 10/21/22 21:26 2 mg ONCE ONE Administration Protocol Ondansetron HCl 4 mg 10/21/22 17:54 10/21/22 18:46 Ondansetron Hcl 4 Mg/2 Ml Vial IVPUSH 10/21/22 17:55 4 mg ONCE ONE Administration Medical Decision Making Medical Decision Making [facility] Narrative: [id number] due to US and delivery date of 02/27/23 at this time with LLQ pain - no diarrhea, no fevers, no flank pain but hx of stones - will obtain US of fetus, ovary on L side and L renal area for renal colic, IVF and labs, UA - patient has a fair amount of pain - IV morphine aware, aware of risks and feels tylenol will not help Differential Diagnosis Differential Diagnoses: The differential diagnosis associated with the presentation includes ovarian cyst, renal colic, UTI, round ligament pain Lab Data [facility] Lab Attestation statement: I reviewed the patient's lab results. 10/21/22 18:28 10/21/22 18:28 Labs: Lab Results 10/21/22 10/21/22 10/21/22 Range/Units 18:28 18:28 18:28 WBC 10.1 (4.8-10.8) X10*3/uL RBC 3.58 L (4.20-5.50) X10*6/uL Hgb 12.4 (12.0-16.0) g/dl Hct 35.8 L (37.0-47.0) % MCV 100.0 H (80.0-98.0) fL MCH 34.6 H (27.0-33.0) pg MCHC 34.6 (31.0-35.0) g/dl RDW 11.9 (11.0-16.0) % Plt Count 183 (160-400) X10*3/uL MPV 9.8 (9.4-12.3) fL Immature Gran % (Auto) 0.4 (0.0-0.4) % Neut % (Auto) 75.4 H (45-73) % Lymph % (Auto) 17.4 L (20-40) % [place] % (Auto) 5.9 (2-11) % Eos % (Auto) 0.5 (0-4) % Baso % (Auto) 0.4 (0-2) % Lymph # (Auto) 1.8 (1.2-4.9) X10*3/uL [place] # (Auto) 0.6 (0.1-1.2) X10*3/uL Eos # (Auto) 0.1 (0.0-0.4) X10*3/uL Baso # (Auto) 0.0 (0.0-0.2) X10*3/uL Abs Immat Gran (auto) 0.04 H (0.00-0.03) X10*3/uL Absolute Neuts (auto) 7.6 (2.0-8.3) x10*3/uL Absolute Nucleated RBC 0.000 (0.0-0.012) X10*3/uL Nucleated RBC % (auto) 0.0 (0.0-0.2) /100WBC Sodium 137 (135-145) mmol/L Potassium 4.1 (3.3-5.1) mmol/L Chloride 107 (96-108) mmol/L Carbon Dioxide 23 (22-29) mmol/L Anion Gap 11 L (12-20) BUN 7 L (9-16) mg/dL Creatinine 0.61 (0.5-1.4) mg/dL Estim Creat Clear Calc 120.4 Estimated GFR > 60 Random Glucose 79 (60-115) mg/dL Calcium 9.3 (8.4-10.2) mg/dL Total Bilirubin 0.3 (0.0-1.0) mg/dL Direct Bilirubin 0.1 (0.0-0.5) mg/dL AST 10 (5-31) U/L ALT 6 (0-31) U/L Alkaline Phosphatase 58 (39-117) U/L Total Protein 6.5 (6.5-8.0) g/dL Albumin 3.4 L (3.5-5.0) g/dL Lipase 20 (8-78) U/L Urine Color Urine Appearance Urine pH (5.0-9.0) Ur Specific [place] (1.005-1.025) Urine Protein (Neg-Trace) mg/dL Urine Glucose (UA) (Negative) mg/dL Urine Ketones (Negative) mg/dL Urine Blood (Negative) Urine Nitrite (Negative) Ur Leukocyte Esterase (Negative) Urine RBC (0-2) /HPF Urine WBC (0-5) /HPF Ur Squamous Epith Cells (0-2) /HPF Urine Bacteria (None Seen) Hyaline Casts (0-2) /LPF 10/21/22 Range/Units 19:45 WBC (4.8-10.8) X10*3/uL RBC (4.20-5.50) X10*6/uL Hgb (12.0-16.0) g/dl Hct (37.0-47.0) % MCV (80.0-98.0) fL MCH (27.0-33.0) pg MCHC (31.0-35.0) g/dl RDW (11.0-16.0) % Plt Count (160-400) X10*3/uL MPV (9.4-12.3) fL Immature Gran % (Auto) (0.0-0.4) % Neut % (Auto) (45-73) % Lymph % (Auto) (20-40) % [place] % (Auto) (2-11) % Eos % (Auto) (0-4) % Baso % (Auto) (0-2) % Lymph # (Auto) (1.2-4.9) X10*3/uL [place] # (Auto) (0.1-1.2) X10*3/uL Eos # (Auto) (0.0-0.4) X10*3/uL Baso # (Auto) (0.0-0.2) X10*3/uL Abs Immat Gran (auto) (0.00-0.03) X10*3/uL Absolute Neuts (auto) (2.0-8.3) x10*3/uL Absolute Nucleated RBC (0.0-0.012) X10*3/uL Nucleated RBC % (auto) (0.0-0.2) /100WBC Sodium (135-145) mmol/L Potassium (3.3-5.1) mmol/L Chloride (96-108) mmol/L Carbon Dioxide (22-29) mmol/L Anion Gap (12-20) BUN (9-16) mg/dL Creatinine (0.5-1.4) mg/dL Estim Creat Clear Calc Estimated GFR Random Glucose (60-115) mg/dL Calcium (8.4-10.2) mg/dL Total Bilirubin (0.0-1.0) mg/dL Direct Bilirubin (0.0-0.5) mg/dL AST (5-31) U/L ALT (0-31) U/L Alkaline Phosphatase (39-117) U/L Total Protein (6.5-8.0) g/dL Albumin (3.5-5.0) g/dL Lipase (8-78) U/L Urine Color Yellow Urine Appearance Cloudy Urine pH 6.0 (5.0-9.0) Ur Specific [place] >= 1.030 H (1.005-1.025) Urine Protein Trace (Neg-Trace) mg/dL Urine Glucose (UA) Negative (Negative) mg/dL Urine Ketones Negative (Negative) mg/dL Urine Blood Negative (Negative) Urine Nitrite Negative (Negative) Ur Leukocyte Esterase Moderate (2+) H (Negative) Urine RBC 6-10 H (0-2) /HPF Urine WBC 21-50 H (0-5) /HPF Ur Squamous Epith Cells 11-20 (0-2) /HPF Urine Bacteria 4+ (None Seen) Hyaline Casts 3-5 (0-2) /LPF Independent Interpretation I performed an independent interpretation of an: Ultrasound (normal OB, no torsion or cyst, no hydronephrosis) Radiology Impression Discussion of test interpretation with radiology: I have reviewed the radiologist's reading. Independent Historian Clinical information obtained from an independent historian. History obtained from or confirmed by: Spouse Discharge Plan Discharge Clinical Impression: Abdominal pain, Acute lower UTI, Renal colic on left side Patient Disposition: Still a Patient Instructions: Kidney Stones (ED), How to Strain Your Urine (ED), Urinary Tract Infection in (ED) Additional Instructions: At this time, I believe that your pain is caused by a kidney stone even though your ultrasound was normal. Your urine may be consistent with a urine infection. You did receive ceftriaxone 1 g IV-this is an antibiotic that will last for 24 hours. I am going to treat you for urinary tract infection with Keflex (cephalexin) 500 mg pills, 1 pill 3 times a day for 5 days. I did talk to the OBGYN doctor at [facility], Dr. Zully Lim. We both felt that your pain is more consistent with a kidney stone and not related to your or early premature contractions. Take Flomax (tamsulosin) 0.4 mg once a day for the next 2 weeks or until you pass the stone. This medication helps relax the ureter and may help you pass the stone sooner. This medication is safe in . Take Tylenol (acetaminophen) 2 pills every 4-6 hours as needed for pain. For pain not relieved by Tylenol take morphine 15 mg pills, 1 pill every 4 hours as needed for pain. This medication will make you sleepy, do not drive or work while taking this medication. Morphine is a narcotic medication and can be addicting. If you are concerned about addiction you can ask the pharmacist for less pills or do not get this prescription filled. Call your OBGYN doctor tomorrow to get follow-up within 2-3 days. You can also call our urologist to see if they can follow you up however you may need to get a urologist at [facility] so that your OBGYN doctor can be involved in your care. Follow-up with your doctor in 2 days. Please return to the emergency department if your symptoms get worse or if you develop any symptoms that are concerning to you. Prescriptions: New cephalexin 500 mg capsule 500 mg PO TID 5 Days Qty: 15 0RF tamsulosin [Flomax] 0.4 mg capsule 0.4 mg PO DAILY Qty: 14 0RF morphine 15 mg tablet 15 mg PO Q4-6H PRN (Reason: pain) Qty: 10 0RF Rx Instructions: The patient may ask for partial fill; Partial Fill upon patient request. No Action ondansetron 4 mg tablet,disintegrating 4 mg PO Q6-8H PRN (Reason: nausea and vomiting) Qty: 15 0RF promethazine 25 mg suppository 25 mg UT Q6H PRN (Reason: nausea and vomiting) Qty: 12 0RF nitrofurantoin monohyd/m-cryst [Macrobid] 100 mg capsule 100 mg PO Q12H 7 Days Qty: 14 0RF Rx Instructions: must administer with a meal/food Referrals: Valorie Aguirre MD [Physician] - 1 week (32-year-old female , 21 weeks 4 days , left flank pain consistent with renal colic)
--- NOTE | 2022-10-21 18:01 | MHC.EDTECH ---
will draw labs when pt returns from u/s
[2022-10-21 18:32] LABS: MANUAL DIFF FLAG NO
[2022-10-21 18:34] LABS: Basophils Percent Auto 0.4 % (0-2); Eosinophils Absolute Auto 0.1 X10*3/uL (0.0-0.4); Eosinophils Percent Auto 0.5 % (0-4); Hematocrit 35.8 % (37.0-47.0); Hemoglobin 12.4 g/dl (12.0-16.0); Imm Gran Abs Auto 0.04 X10*3/uL (0.00-0.03); Imm Gran Pct Auto 0.4 % (0.0-0.4); Lymphocytes Absolute Auto 1.8 X10*3/uL (1.2-4.9); Lymphocytes Percent Auto 17.4 % (20-40); Mean Corpuscular HGB Conc 34.6 g/dl (31.0-35.0); Mean Corpuscular Hemoglobin 34.6 pg (27.0-33.0); Mean Platelet Volume 9.8 fL (9.4-12.3); Monocytes Absolute Auto 0.6 X10*3/uL (0.1-1.2); Monocytes Percent Auto 5.9 % (2-11); Neutrophils Absolute Auto 7.6 x10*3/uL (2.0-8.3); Neutrophils Percent Auto 75.4 % (45-73); Platelet Count 183 X10*3/uL (160-400); Red Blood Count 3.58 X10*6/uL (4.20-5.50); Red Cell Distribution Width 11.9 % (11.0-16.0); White Blood Count 10.1 X10*3/uL (4.8-10.8)
[2022-10-21] MEDS: Morphine Sulfate 2 MG/ML CARTRIDGE IVPUSH ×3 (18:45→23:31)
[2022-10-21] MEDS: ondansetron HCL 4 MG/2 ML VIAL IVPUSH (18:46)
[2022-10-21 18:56] LABS: Lipase 20 U/L (8-78)
[2022-10-21] MEDS: 0.9 % Sodium Chloride 1,000 ML 999 ML IV ×2 (18:58→21:49)
[2022-10-21 19:12] LABS: Alanine Aminotransferase 6 U/L (0-31); Albumin Level 3.4 g/dL (3.5-5.0); Alkaline Phosphatase 58 U/L (39-117); Anion Gap 11 (12-20); Aspartate Amino Transferase 10 U/L (5-31); Bilirubin Direct 0.1 mg/dL (0.0-0.5); Bilirubin Total 0.3 mg/dL (0.0-1.0); Blood Urea Nitrogen 7 mg/dL (9-16); Calcium 9.3 mg/dL (8.4-10.2); Carbon Dioxide 23 mmol/L (22-29); Chloride 107 mmol/L (96-108); Creatinine Clr Calc Pharmacy 120.4; Estimated Glomerular Filt Rate > 60; Glucose Random 79 mg/dL (60-115); Potassium 4.1 mmol/L (3.3-5.1); Sodium 137 mmol/L (135-145); Total Protein 6.5 g/dL (6.5-8.0)
--- NOTE | 2022-10-21 19:22 | PC.NURSE ---
Pt ca&ox3, no signs of distress. Pt with her 4 small children at bedside. Urine collected and sent. Pt reports 9 abdm pain that radiates to flank. aware. tm.
[2022-10-21 19:52] LABS: Appearance Urine Cloudy; Color Urine Yellow; Glucose Urine UA Negative (Negative); Leukocyte Esterase Urine Moderate (2+) (Negative); Nitrite Urine Negative (Negative); Specific Gravity - Urine >= 1.030 (1.005-1.025); UMIC TRIGGER UACC YES; Urine Blood Negative (Negative); Urine Ketones Negative (Negative); Urine Protein Trace mg/dL (Neg-Trace)
--- NOTE | 2022-10-21 19:53 | PC.NURSE ---
Pt urine collected and sent. Pt reports primary OB is Teresa Soni from [place]. made aware. tm.
[2022-10-21] MEDS: Acetaminophen 325 MG TABLET 650 MG PO (20:01)
[2022-10-21 20:05] LABS: Bacteria Urine 4+ (None Seen); UACC Culture Trigger YES; WBC Urine 21-50 /HPF (0-5)
--- NOTE | 2022-10-21 20:41 | PC.NURSE ---
Pt medicated per jun. collin.
[2022-10-21] MEDS: cefTRIAXone sodium 1 GM in 0.9 % Sodium Chloride 50 ML IV (20:47)
--- NOTE | 2022-10-21 21:56 | PC.NURSE ---
Pt ca&ox3, no signs of distress. Meds given per mar. Will continue to monitor.
--- NOTE | 2022-10-21 22:46 | MHC.EDTECH ---
requested to speak to [facility] OBGYN re: patient. Pt sees at [facility]. Called at 8:25p, 9:00p, 9:30p, 10:00p, and 10:45p. Spoke to different people each time. Was advised that the ground operations crew member MD and Electrolysis Engineer were in the OR. Was also told that they paged multiple times to the ground operations crew member OB.
--- NOTE | 2022-10-21 22:54 | PC.NURSE ---
Pt ca&o, no signs of distress. Reports 4/10 pain. Bf remains at bedside. will continue to monitor.
[2022-10-21] MEDS: Tamsulosin HCL 0.4 MG CAPSULE PO (23:31)
== END 2022-10-21 23:46 | disposition home or self-care (01) ==
PROVIDERS: Emergency Medicine; Physician Assistant Medical; Emergency Provider Emergency Medicine Emergency Medical Services; PCP Internal Medicine
DX: O23.42 Unspecified infection of urinary tract in pregnancy, second trimester (principal); N39.0 Urinary tract infection, site not specified; O26.892 Other specified pregnancy related conditions, second trimester; N23 Unspecified renal colic; Z3A.21 21 weeks gestation of pregnancy
CPT/HCPCS: 36415; 76775; 76815; 80048; 80076; 81001; 83690; 85025; 87086; 93975; 96361; 96365; 96375; 96376; 99284; J0696; J2270; J2405

== ENCOUNTER 2023-10-18 08:31 | Outpatient (AMB) | payer OTHER, SELFPAY ==
[2023-10-18 08:36] VITALS: BP 110/66; PULSE 77; TEMP 37.1; O2SAT 98; BMI 29.4
--- NOTE | 2023-10-18 08:36 | AM.OFFWIN_ITS ---
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, swollen glands Intake Note: pt is here for loss of voice, sore throat and swollen glands started last night Patient Tobacco Use Status: Never used Tobacco Allergies No Known Allergies Allergy (Mild, Verified 10/18/23 08:37) N/A Do you need a note to return to daycare/school/sports/work: Yes HPI HPI Comments History of Present Illness Details Patient presents to office with ST Son + strep at home Onset ST last night 02/08 pain + lost voice Tried Ibuprofen without relief No cough, SOB Worse with swallowing No improving factors No other complaints PFSH Medical History (Updated 10/18/23 @ 09:03 by Sapphire Perez PA-C) Renal colic Social History (Updated 10/21/22 @ 18:18 by Mary Jane Mills DO) Patient Tobacco Use Status: Never used Tobacco Review of Systems Const Denies fever(s) ENT Denies otalgia, Denies nasal discharge, Reports sore throat and Denies tongue swelling Resp Denies cough GI Denies vomiting Aller/Immun Denies tongue swelling Physical Exam Vital Signs: Last Vital Signs Temp 98.7 F 10/18/23 08:36 Pulse 77 10/18/23 08:36 BP 110/66 10/18/23 08:36 Pulse Ox 98 10/18/23 08:36 Oxygen Delivery Method Room Air 10/18/23 08:36 BMI result Body Mass Index 29.4 General: Non-toxic, NAD. Speaking full sentences with quiet voice. No stridor. handling secretions Skin: Warm dry throughout Eye: EOMI HENT: Airway patent. Uvula midline. + pharyngeal erythema with slight edema. No exudates or REHAB CONSULTANT. uvula midline. Lymph: + tender tonsillar lymphadenopathy Respiratory: CTA bilaterally. No wheezes, rales or rhonchi Cardiac: RRR. No murmur MSK: Full ROM extremities. Neurology: A/O. No aphasia or facial droop. Gait without abnormality Psych: Good mood and affect Results AMB Rapid Strep AMB Rapid Strep Positive Last Edit by Tre Dickey CMA on 10/18/23 08:55 Results Reviewed Results Reviewed: Laboratory Last Values Strep Scn Rapid Clinic Positive 10/18/23 08:48 Assessment & Plan Assessment & Plan (1) Strep pharyngitis: Code(s): J02.0 - Streptococcal pharyngitis Plan: Patient seen and evaluated. Strep + No REHAB CONSULTANT. Airway is patent Penicillin Ibuprofen New toothbrush Finish antibiotics in full completion Patient gave verbal understanding and had no additional questions or concerns at time of discharge All questions answered Orders: Orders AMB Rapid Strep Screen Today Z13.9 - Encounter for screening, unspecified Medications: New penicillin V potassium 500 mg PO BID 20 tabs 0RF Discontinued ondansetron Discontinued Reason: Patient Completed Course 4 mg PO Q6-8H PRN 15 tabs 0RF nausea and vomiting promethazine Discontinued Reason: Patient Completed Course 25 mg CA Q6H PRN 12 ea 0RF nausea and vomiting nitrofurantoin monohyd/m-cryst 100 mg (Macrobid) must administer with a meal/food Discontinued Reason: Patient Completed Course 100 mg PO Q12H 7 days 14 caps 0RF cephalexin Discontinued Reason: Patient Completed Course 500 mg PO TID 5 days 15 caps 0RF morphine The patient may ask for partial fill; Partial Fill upon patient request. Discontinued Reason: Patient Completed Course 15 mg PO Q4-6H PRN 10 tabs 0RF pain tamsulosin (Flomax) Discontinued Reason: Patient Completed Course 0.4 mg PO DAILY 14 caps 0RF Coding Level of Care Code New Pt Level 3 (22618) Diagnoses Strep pharyngitis J02.0
== END 2023-10-18 09:16 | disposition home or self-care (01) ==
PROVIDERS: PCP Internal Medicine; Visit Provider Physician Assistant
DX: J02.0 Streptococcal pharyngitis (principal)
CPT/HCPCS: 87880; 99203

== ENCOUNTER 2025-04-18 07:18 | Emergency (ER) | payer SELFPAY ==
--- NOTE | ~2025-04-18 | XR_ITS ---
EXAMINATION: XR FOURTH DIGIT, RIGHT HAND CLINICAL INFORMATION: right ring finger swelling COMPARISON: None available. TECHNIQUE: PA view of the right hand. Oblique and lateral views of the right fourth digit.. FINDINGS: No acute cortical disruption or malalignment. No lytic or blastic lesions. No soft tissue calcification. No subcutaneous emphysema. No metallic or radiopaque foreign body. Carpal bones are intact. Metacarpal bones are intact. Distal radius and ulna are intact.. XR/XR finger RT min 2V IMPRESSION: No acute fracture or dislocation. No gross radiopaque foreign body. Electronically signed by: Hilario Garduno MD 04/18/2025 08:06 AM [facility]
[2025-04-18 07:19] VITALS: BP 119/68; PULSE 67; RESP 18; TEMP 36.6; O2SAT 98; BMI 27.8
--- OUTSIDE RECORDS SUMMARY | 2025-04-18 07:43 | XMS_ITS ---
Author Name [facility] Organization Unknown Care Team Organization Name Specialty Phone Email Start Date End [facility] LESLIE SOLIS Primary Care 03/09/2022 4
--- OUTSIDE RECORDS SUMMARY | 2025-04-18 07:43 | XMS_ITS | Clinical Summary ---
Author Organization [facility] [address] [place] [address] [place] [phone] Phone Care Team Providers Care Kier Drier Name Role Phone Atif Sheridan MD Primary Care Provider [phone] Allergies No known active allergies Medications cholecalciferol (VITAMIN D-3) 50 mcg (2,000 unit) tablet Take 1 Tablet by mouth daily. 3 Active ondansetron ODT (ZOFRAN-ODT) 4 mg disintegrating tablet Take 1 Tablet by mouth every 8 hours as needed for Nausea for up to 7 days. 3 Active vit [id number] ( Plus Vitamin-Mineral) 27 mg iron- 1 mg tablet Take 1 Tablet by mouth daily. 3 Active Active Problems Problem Noted Date Diagnosed Date Vulvar lesion 02/08/2023 Overview (04/17/2024): 02/08/2023 - see note. 02/14/23- +HSV IGG and IGM waiting for HSV culture. Speculum exam today neg HSV lesions. 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 Asthma 10/06/2015 GERD (gastroesophageal reflux disease) 6 Immunizations Immunization Administration Dates Next Due Influenza Quadravalent, MDCK , 0.5ml, preservative free (Flucelvax) 6mo and older 01/19/2023,01/21/2020,01/12/2019 Tdap Tetanus diptheria acell ular pertussis (Boostrix; Adacel) 7yo and older 12/07/2022,05/21/2019,06/21/2012 Surgical History Surgery Date Site/Laterality Comments OVARIAN CYST REMOVAL 05/02/2007 PROCEDURE: RI OVARIAN CYSTECTOMY UNI/BI; COMMENT: bilateral WRIST SURGERY 05/02/2007 PROCEDURE: HISTORICAL WRIST SURGERY; COMMENT: right wrist, tendon surgery SECTION 02/15/2023 PROCEDURE: HISTORICAL DELIVERY; COMMENT: T-incision Medical History Medical History Date Comments Asthma DX:Asthma; COMME NT: exercise induced GERD (gastroesophageal reflu x disease) DX:GERD (gastroesophageal re flux disease) Influenza B 06/07/2019 DX:Influenza B Kidney stone complicating pr egnancy, second trimester 10/25/2022 DX:Kidney stone complicating , second trimester; COMMENT: [facility] on 10/21/22; Keflex and Flomax Referral to Urology placed 10/25/2022 Family History Medical History Relation Name Comments Diabetes Aunt No Known Problems Brother 1 No Known Problems Brother 2 No Known Problems Brother 3 paternal h intermediate brother No Known Problems Father Colon cancer Maternal Grandfather 73 Diabetes Maternal Grandfather Other: kidnecy cancer Maternal Grandfather Heart attack Maternal Grandmother at 33 yrs old of [place] Other: lupus Mother Heart attack Paternal Grandfather Stroke Paternal Grandfather Breast cancer Paternal Grandmother stage 4 Other: from breast cancer Paternal Grandmother No Known Problems Sister 1 No Known Problems Sister 2 No Known Problems Sister 3 paternal h yolanda sister Other: lupus Sister 4 Lupus Cervical cancer Neg Hx Ovarian cancer Neg Hx Uterine cancer Neg Hx Relation Name Status Comments Aunt Brother 1 Alive 23 yrs old Brother 2 Alive 13 yrs old Brother 3 Alive 12 yrs old Father Alive Maternal Grandfather Maternal Grandmother Mother Alive Paternal Grandfather Alive Paternal Grandmother Sister 1 Alive 26 yrs old Sister 2 Alive 24 yrs old Sister 3 Alive 7 yrs old Sister 4 Alive Social History Tobacco Use Types Packs/Day Years Used Date Smoking Tobacco: Never Smokeless Tobacco: Never Alcohol Use Standard Drinks/Week Comments Not Currently 0 (1 standard drink = 0.6 oz pur e alcohol) Comments Unknown Sex and Gender Information Value Date Recorded Sex Assigned at Not on file Legal Sex Female 1:13 AM EST Gender Identity Not on file Sexual Orientation Not on file Last Filed Vital Signs Vital Sign Reading Time Taken Comments Blood Pressure 110/72 06/01/2023 8:33 AM EST Pulse 80 06/01/2023 8:33 AM EST Temperature - - Respiratory Rate - - Oxygen Saturation - - Inhaled Oxygen Concentration - - Weight 73.9 kg (163 lb) 06/01/2023 8:33 AM EST Height 157.5 cm (5' 2 ) 06/01/2023 8:33 AM EST Body Mass Index 29.81 06/01/2023 8:33 AM EST Plan of Treatment Health Maintenance Due Date Last Done Comments Hepatitis B Vaccines (1 of 3 - 19+ 3-dose series) 2009 Pneumococcal Vaccine: Pediatrics (0 to 5 Years) and At-Risk Patients (6 to 49 Years) (1 of 2 - PCV) 2009 HPV Vaccines (1 - 3-dose SCD M series) 2017 Social Influencers of Health Screening 04/10/2022 Depression Screening 05/02/2024 COVID-19 Vaccine (2 - 2024-2 6 season) 2024 02/04/2021 Influenza Vaccine (#1) 2024 , 01/21/2020, 01/12/2019 Cholesterol Screening (Lipid Panel) 01/26/2027 01/26/2022 Cervical Cancer Screening: HPV 03/22/2028 03/22/2023 DTaP,Tdap,and Td Vaccines (4 - Td or Tdap) 12/07/2032 12/07/2022, 05/21/2019, 06/21/2012 RSV Immunization Adult Patients (1 - 1-dose 75+ series) 2065 HIV Screening Completed 09/24/2022 Hepatitis C Screening Completed 09/24/2022 HIB Vaccines Aged Out No longer eligi ble based on patient's age to complete this topic Hepatitis A Vaccines Aged Out No long er eligible based on patient's age to complete this topic IPV Vaccines Aged Out No longer eligi ble based on patient's age to complete this topic MMR Vaccines Aged Out No longer eligi ble based on patient's age to complete this topic Meningococcal ACWY Vaccine Aged Out N o longer eligible based on patient's age to complete this topic Meningococcal B Vaccine Aged Out No l onger eligible based on patient's age to complete this topic RSV Immunization Patients Under 20 months Aged Out No longer eligible b ased on patient's age to complete this topic Varicella Vaccines Aged Out No longer eligible based on patient's age to complete this topic Procedures Procedure Name Priority Date/Time Associated Diagnosis Comments HPV Routine 03/22/2023 HEPATITIS C SCREENING Routine 09/24/2022 HIV SCREENING Routine 09/24/2022 LIPID PANEL Routine 01/26/2022 from Last 3 Months or Most Recently Relevant to Health Maintenance Results * Cervical Cancer Screening: HPV (03/22/2023) [facility] Cervical Cancer Screening: HPV Positive, Abstracted [facility] Provider HEALTH MAINTENANCE Final Result * HIV Screening (09/24/2022) [facility] [address] HIV Screening Abstracted [facility] Provider HEALTH MAINTENANCE Final Result * Hepatitis C Screening (09/24/2022) [facility] Hepatitis C Screening Abstracted [facility] Provider HEALTH MAINTENANCE Final Result * (ABNORMAL) Lipid panel (01/26/2022) [facility] [address] LDL/HDL Ratio 4 0 - 4 Triglycerides 110 0 - 150 mg/dL Cholesterol 209(A) 0 - 200 mg/dL HDL 55 >=40 mg/dL LDL Cholesterol 132(A) 0 - 100 mg/dL Blood Venous blood specimen / Unknown us Historical Provider LAB BLOOD ORDERABLES Danielle l Result from Last 3 Months or Most Recently Relevant to Health Maintenance Care Teams Kier Drier Relationship Specialty Start Date End Date Atif Sheridan MD [address] [place] [phone] PCP - General Internal Medicine 03/18/25
[2025-04-18 08:45] LABS: MANUAL DIFF FLAG NO
[2025-04-18 08:49] LABS: Hematocrit 42.3 % (37.0-47.0); Hemoglobin 14.2 g/dl (12.0-16.0); Imm Gran Abs Auto 0.02 X10*3/uL (0.00-0.03); Imm Gran Pct Auto 0.3 % (0.0-0.4); Lymphocytes Absolute Auto 1.7 X10*3/uL (1.2-4.9); Mean Corpuscular HGB Conc 33.6 g/dl (31.0-35.0); Mean Corpuscular Hemoglobin 33.7 pg (27.0-33.0); Mean Corpuscular Volume 100.5 fL (80.0-98.0); NRBC Abs Auto 0.000 X10*3/uL (0.0-0.012); NRBC Pct Auto 0.0 /100WBC (0.0-0.2); Platelet Count 193 X10*3/uL (160-400); Red Blood Count 4.21 X10*6/uL (4.20-5.50); White Blood Count 5.9 X10*3/uL (4.8-10.8)
[2025-04-18 09:38] LABS: Alanine Aminotransferase 21 U/L (0-31); Albumin Level 4.6 g/dL (3.5-5.0); Alkaline Phosphatase 63 U/L (39-117); Anion Gap 10 (12-20); Aspartate Amino Transferase 19 U/L (5-31); Blood Urea Nitrogen 8 mg/dL (9-16); Calcium 9.4 mg/dL (8.4-10.2); Carbon Dioxide 28 mmol/L (22-29); Chloride 106 mmol/L (96-108); Creatinine Clr Calc Pharmacy 110.9; Estimated Glomerular Filt Rate > 60; Potassium 4.2 mmol/L (3.3-5.1); Sodium 140 mmol/L (135-145); Total Protein 7.3 g/dL (6.5-8.0)
--- NOTE | 2025-04-18 10:09 | ED.GENADULT ---
HPI - General Adult General Chief complaint: Wound/Laceration Stated complaint: Finger swelling Time Seen by Provider: 04/18/25 07:49 Source: patient, RN notes reviewed and old records reviewed Mode of arrival: ambulatory Limitations: no limitations History of Present Illness ED Provider: NOEMI Allison HPI narrative: 34-year-old female without significant medical history presents to the ED due to 3 days of pain and swelling of the right 4th digit. Patient initially thought it was an ingrown nail and went to her nail salon 2 days ago and had the cuticle and bed cleaned up with worsening pain and swelling without injury/trauma to the area. Patient has been soaking the finger with Epsom salt, and Listerine for care and has not taken OTC medication for pain or swelling. Patient denies fevers, chills, chest pain, shortness of breath, abdominal pain, nausea, vomiting, black /tarry stool, urinary symptoms. MD complaint: R 4th digit pain and swelling Related Data Previous Rx's ?Medication ?Instructions ?Recorded penicillin V potassium 500 mg 500 mg PO BID #20 tabs 10/18/23 tablet amoxicillin 875 mg-potassium 1 tab PO BID 10 days #20 tabs 04/18/25 clavulanate 125 mg tablet Allergies Allergy/AdvReac Type Severity Reaction Status Date / Time No Known Allergies Allergy Mild N/A Verified 04/18/25 07:23 Review of Systems Review of Systems: Yes all other systems are reviewed and are negative [facility] Past Medical History Attestation statement: The following information was validated with the patient. Source: old records reviewed and nursing notes reviewed Medical History (Updated 04/18/25 @ 10:59 by Steven Allison PA-C) Renal colic Social History Social History (Updated 10/21/22 @ 18:18 by Mary Jane Mills DO) Patient Tobacco Use Status: Never used Tobacco Smoked in Last 30 Days: No Use of substances other than those prescribed or required for medical reasons: No Advance Directives: No Advance Directives Information Provided: Yes Physical Exam ED Vital Signs: Vital Signs - 24 hr 04/18/25 07:19 Temperature 98 F Pulse Rate 67 Respiratory Rate 18 Blood Pressure 119/68 Pulse Oximetry 98 Oxygen Delivery Method Room Air BMI result Body Mass Index 27.8 GENERAL APPEARANCE: ?AxOx4, generally well-appearing, no acute distress. HEENT: ?NC, AT. MMM. EOMI, clear conjunctiva, oropharynx clear. NECK: ?Supple without lymphadenopathy.? No stiffness or restricted ROM. HEART:? Normal rate and regular rhythm, normal S1/S1, no m/r/g LUNGS:? CTAB, moving air well. No crackles or wheezes are heard. ABDOMEN: ?Soft, nontender, nondistended with good bowel sounds heard. BACK: No CVAT, no obvious deformity. EXTREMITIES: ?Without cyanosis, clubbing or edema. TTp of R 4th digit of the nail bed and pad of fingertip with moderate edema and mild warmth to the area, no TTP over the tendons, full ROM intact, Radial pulses2+ fingertip of the appropriate capillary refill time, SILT. NEUROLOGICAL: ?Grossly nonfocal. Alert and oriented, moving all 4 extremities. Observed to ambulate with normal gait. Skin: ?Warm and dry without any rash. Medications Administered Discontinued Medications Generic Name Dose Route Start Last Admin Trade Name Freq PRN Reason Stop Dose Admin Acetaminophen 975 mg 04/18/25 08:25 04/18/25 08:50 Acetaminophen 325 Mg Tablet PO 04/18/25 08:26 975 mg ONCE ONE Administration Ketorolac Tromethamine 30 mg 04/18/25 08:25 04/18/25 08:50 Ketorolac Tromethamine 30 Mg/Ml Vial IM 04/18/25 08:26 30 mg ONCE ONE Administration Lidocaine HCl 5 ml 04/18/25 10:09 04/18/25 10:13 Lidocaine Hcl 1 % Mpf 5 Ml Vial SUBCUT 04/18/25 10:10 5 ml ONCE ONE Administration Medical Decision Making Medical Decision Making MDM Narrative: 34-year-old female without significant medical history presents to the ED due to 3 days of pain and swelling of the right 4th digit. Patient initially thought it was an ingrown nail and went to her nail salon 2 days ago and had the cuticle and bed cleaned up with worsening pain and swelling without injury/trauma to the area. Patient has been soaking the finger with Epsom salt, and Listerine for care and has not taken OTC medication for pain or swelling. VS on initial observation - BP 119/68, pulse rate of 67, respiratory rate of 18, afebrile with oral temp of 98?, O2 saturation 98 % on room air. On physical exam patient is well-appearing, nontoxic appearing, in no acute distress, patient with TTP of right 4th digit along the nail bed, and of the finger pad, full ROM intact, no tenderness over the tendons, the finger has moderate edema with mild warmth, no streaking, radial pulses 2+, appropriate capillary refill time, SILT Labs without leukocytosis/leukopenia, no evidence of anemia, no electrolyte abnormalities XR R hand WNL,without evidence of osteomyelitis, or subcutaneous emphysema I reached out to orthopedic PAUL Snowden for further evaluation as I was concerned for finger felon. Samuel came down to evaluate the patient and was not concerned for a felon and believes that this is a advanced paronychia, he advised to I&D the nail with 10 day course of Augmentin for bacterial coverage and orthopedic follow up. Patient was medicated with 30 mg Toradol, 975 mg p.o. Tylenol for pain management with improvement of pain and discomfort. I cleaned the finger with iodine and sterile saline and then performed a digital block on the 4th finger with 5 mL lidocaine and used an 11 blade to open up the radial aspect of the nail bed which allowed small ammount of purulent fluid to drain. The finger was then cleaned again with iodine and sterile saline a Band-Aid placed on top and wrapped in a dressing. I counseled patient to leave the dressing intact for 24 hours and then she can resume warm soaks/hydrogen peroxide soaks that were recommended by Samuel. Patient feels well enough to go home for self-care, and is in agreement with the plan. Differential Diagnosis Differential Diagnoses: The differential diagnosis associated with the presentation includes Felon Flexor tenosynovitis Cellulitis Paronychia Admission/Observation Consideration of admission/observation: Escalation of care including admission/observation considered Consult Healthcare Provider Management of the patient was discussed with: Leaf Sticker ( orthopedic PAUL Snowden ) Lab Data MDM Lab Attestation statement: I reviewed the patient's lab results. 04/18/25 08:39 04/18/25 08:39 Labs: Lab Results 04/18/25 Range/Units 08:39 WBC 5.9 (4.8-10.8) X10*3/uL RBC 4.21 (4.20-5.50) X10*6/uL Hgb 14.2 (12.0-16.0) g/dl Hct 42.3 (37.0-47.0) % MCV 100.5 H (80.0-98.0) fL MCH 33.7 H (27.0-33.0) pg MCHC 33.6 (31.0-35.0) g/dl RDW 11.7 (11.0-16.0) % Plt Count 193 (160-400) X10*3/uL MPV 10.4 (9.4-12.3) fL Immature Gran % (Auto) 0.3 (0.0-0.4) % Neut % (Auto) 61.1 (45-73) % Lymph % (Auto) 29.5 (20-40) % [place] % (Auto) 7.2 (2-11) % Eos % (Auto) 1.4 (0-4) % Baso % (Auto) 0.5 (0-2) % Lymph # (Auto) 1.7 (1.2-4.9) X10*3/uL [place] # (Auto) 0.4 (0.1-1.2) X10*3/uL Eos # (Auto) 0.1 (0.0-0.4) X10*3/uL Baso # (Auto) 0.0 (0.0-0.2) X10*3/uL Abs Immat Gran (auto) 0.02 (0.00-0.03) X10*3/uL Absolute Neuts (auto) 3.6 (2.0-8.3) x10*3/uL Absolute Nucleated RBC 0.000 (0.0-0.012) X10*3/uL Nucleated RBC % (auto) 0.0 (0.0-0.2) /100WBC Sodium 140 (135-145) mmol/L Potassium 4.2 (3.3-5.1) mmol/L Chloride 106 (96-108) mmol/L Carbon Dioxide 28 (22-29) mmol/L Anion Gap 10 L (12-20) BUN 8 L (9-16) mg/dL Creatinine 0.65 (0.5-1.4) mg/dL Estim Creat Clear Calc 110.9 Estimated GFR > 60 Random Glucose 88 (60-115) mg/dL Calcium 9.4 (8.4-10.2) mg/dL Total Bilirubin 0.6 (0.0-1.0) mg/dL AST 19 (5-31) U/L ALT 21 (0-31) U/L Alkaline Phosphatase 63 (39-117) U/L Total Protein 7.3 (6.5-8.0) g/dL Albumin 4.6 (3.5-5.0) g/dL Independent Interpretation I performed an independent interpretation of an: Plain X-Ray Interpretation: I interpreted the XR R hand which was negative for osteomyelitis, subcutaneous emphysema, foreign body or fracture, I agree with the radiologist's interpretation Radiology Impression Discussion of test interpretation with radiology: I have reviewed the radiologist's reading. Radiologist Impression: XR R hand FINDINGS: No acute cortical disruption or malalignment. No lytic or blastic lesions. No soft tissue calcification. No subcutaneous emphysema. No metallic or radiopaque foreign body. Carpal bones are intact. Metacarpal bones are intact. Distal radius and ulna are intact.. XR/XR finger RT min 2V IMPRESSION: No acute fracture or dislocation. No gross radiopaque foreign body. Electronically signed by: Hilario Garduno MD 04/18/2025 08:06 AM [facility] Dictated By: Hilario Redding MD Signed By: <Electronically signed by Hilario Babcock MD in OV> 04/18/25 0806 External Record Review External record reviewed: Inpatient record, Office record and Outpatient record Chronic Conditions Patient?s care impacted by: Other ( no known medical history) Discharge Plan Discharge Clinical Impression: Paronychia of finger Patient Disposition: Home, Self-Care Instructions: Paronychia (ED) Additional Instructions: you were evaluated in the emergency department due to pain of your right 4th finger. Your x-rays were negative for deep infection, or fracture. I reached out to orthopedic PA who advised drainage the area, Antibiotics, andwith follow up in office. You are being prescribed a 10 day course of Augmentin for bacterial coverage of your finger. You can continue doing warm Epsom salt soaks, and soak the finger in hydrogen peroxide. For pain management you can take 500 mg of Tylenol every 5 hours, and 400 mg of ibuprofen every 8 hours. Please follow up with [facility] orthopedics, call their office as they will not call you. Please return to the emergency department if you experience fevers over 100.4? that are not managed by Tylenol/ ibuprofen, increased pain of the 4th finger, decreased sensation or ability to move the 4th finger, pus-like drainage, or any new/worsening/concerning symptoms. Prescriptions: New amoxicillin-pot clavulanate 875-125 mg tablet 1 tab PO BID 10 Days Qty: 20 0RF No Action penicillin V potassium 500 mg tablet 500 mg PO BID Qty: 20 0RF Referrals: [facility] Orthopedic Surgeons [Provider Group] Print Language: Egyptian
[2025-04-18] MEDS: Lidocaine HCl 1 % MPF 5 ML VIAL SUBCUT (10:13)
[2025-04-18 11:42] VITALS: BP 113/62; PULSE 69; RESP 16; TEMP 36.4; O2SAT 98
[2025-04-18 11:43] VITALS: BP 113/62; PULSE 69; RESP 16; TEMP 36.4; O2SAT 98
== END 2025-04-18 11:43 | disposition home or self-care (01) ==
PROVIDERS: Emergency Provider Emergency Medicine Emergency Medical Services; PCP Internal Medicine
DX: L03.011 Cellulitis of right finger (principal); M79.644 Pain in right finger(s)
CPT/HCPCS: 10060; 36415; 73140; 80053; 85025; 96372; 99284; J1885; J2003

== ENCOUNTER → 2025-04-18 08:00 | Outpatient (BNV) | payer SELFPAY | PROVIDERS: Emergency Provider Emergency Medicine Emergency Medical Services; PCP Internal Medicine; Visit Provider Radiology Diagnostic Radiology | DX: M79.89 Other specified soft tissue disorders (principal) | CPT/HCPCS: 73140 ==

== ENCOUNTER 2025-04-23 13:56 | Outpatient (AMB) | payer SELFPAY ==
--- NOTE | 2025-04-23 14:15 | MHC.OFFVIS ---
Vital Signs 04/23/25 14:21 Height 5 ft 2 in Weight 151 lb BMI 27.6 Intake Visit Reasons: ED f/u RT 4th digit pain paronychia Intake Note: Teresa is a 34 year old right hand dominant female who presents today for an ED Follow Up with complaints of Right Ring Finger Pain, ? Paronychia. Patient reports discomfort when bending her finger, primarily on the volar aspect of her finger. She feels like it is still swollen on the radial aspect of her right ring finger. She continues taking her Augmentin as prescribed. She denies numbness, tingling, or discharge. She has been taking Ibuprofen PRN with relief. Allergies No Known Allergies Allergy (Mild, Verified 04/23/25 14:18) N/A HPI HPI ED f/u RT 4th digit pain paronychia: Details: Teresa is a 34 year old right hand dominant female who presents today for an ED Follow Up with complaints of Right Ring Finger Pain, ? Paronychia. Patient reports discomfort when bending her finger, primarily on the volar aspect of her finger. States areas totally nontender to palpation. She feels like it is still swollen on the radial aspect of her right ring finger. She continues taking her Augmentin as prescribed. She denies numbness, tingling, or discharge. She has been taking Ibuprofen PRN with relief. 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 Neuro: Normal sensation of the tips of all digits of the right hand at this time Vascular: Cap refill brisk Pain: No tenderness to palpation about distal aspect of the right ring finger Minimal discomfort with range of motion of the right ring finger, particularly at the D IP joint ROM: Patient is able to make a closed fist and extend all digits of the right hand fully Skin: No lacerations or abrasions. Small incision site appears well healed, no evidence of discharge or ongoing infection at this time General: Minimal swelling noted of the radial and dorsal aspect of the distal right ring finger No ecchymosis, erythema, or evidence of infection. Psych: Appears grossly normal Affect normal Attitude cooperative Assessment & Plan Assessment & Plan (1) Paronychia of right ring finger: Code(s): L03.011 - Cellulitis of right finger Category: Medical Plan 1. Paronychia of right ring finger status post I and D in the ER Date of procedure 04/18/2025 With near complete symptomatic resolution Continue antibiotics, finish current course No refill indicated at this time No need for further soaking at this time Patient may return to full normal activity at this point Patient is educated on worrisome signs and symptoms of worsening infection, such as redness, swelling, pain, or discharge, and should call our office if she begins to experience any of the symptoms again, and should immediately begin hot water and peroxide soaks Patient understands this and is amenable to this plan Follow-up as needed with any acute concerns Coding Level of Care Code New Pt Level 3 (59552) Diagnoses Paronychia of right ring finger L03.011
[2025-04-23 14:21] VITALS: BMI 27.6
--- OUTSIDE RECORDS SUMMARY | 2025-04-23 15:12 | XMS_ITS | Clinical Summary ---
Author Organization [facility] [address] [place] [address] [place] [phone] Phone Care Team Providers Care Trim Machine Operator Name Role Phone Atif Sheridan MD Primary Care Provider [phone] Allergies No known active allergies Medications cholecalciferol (VITAMIN D-3) 50 mcg (2,000 unit) tablet Take 1 Tablet by mouth daily. 3 Active ondansetron ODT (ZOFRAN-ODT) 4 mg disintegrating tablet Take 1 Tablet by mouth every 8 hours as needed for Nausea for up to 7 days. 3 Active vit no.[id number] ( Plus Vitamin-Mineral) 27 mg iron- 1 [...] Site/Laterality Comments OVARIAN CYST REMOVAL 05/02/2007 PROCEDURE: DC OVARIAN CYSTECTOMY UNI/BI; COMMENT: bilateral WRIST SURGERY [...] DX:Kidney stone complicating , second trimester; COMMENT: [facility] on 10/21/22; Keflex and Flomax Referral to Urology placed 10/25/2022 Family History Medical History Relation Name Comments Diabetes Aunt No Known Problems Brother 1 No Known Problems Brother 2 No Known Problems Brother 3 paternal h skilled nursing brother No Known Problems Father Colon cancer Maternal Grandfather 73 Diabetes Maternal Grandfather Other: kidnecy cancer Maternal Grandfather Heart attack Maternal Grandmother at 33 yrs old of [place] Other: lupus Mother Heart attack Paternal Grandfather [...] Results * Cervical Cancer Screening: HPV (03/22/2023) [facility] Cervical Cancer Screening: HPV Positive, Abstracted [facility] Provider HEALTH MAINTENANCE Final Result * HIV Screening (09/24/2022) [facility] HIV Screening Abstracted [facility] Provider HEALTH MAINTENANCE Final Result * Hepatitis C Screening (09/24/2022) [facility] Hepatitis C Screening Abstracted [facility] Provider HEALTH MAINTENANCE Final Result * (ABNORMAL) Lipid panel (01/26/2022) [facility] LDL/HDL Ratio 4 0 - 4 Triglycerides 110 0 - 150 mg/dL Cholesterol 209(A) 0 - 200 mg/dL HDL 55 >=40 mg/dL LDL Cholesterol 132(A) 0 - 100 mg/dL Blood Venous blood specimen / Unknown us Historical Provider LAB BLOOD ORDERABLES Danielle l Result from Last 3 Months or Most Recently Relevant to Health Maintenance Care Teams Trim Machine Operator Relationship Specialty Start Date End Date Atif Sheridan MD [address] [place] [phone] PCP - General Internal Medicine 03/18/25
== END 2025-04-23 14:41 | disposition home or self-care (01) ==
LOC: HO.HOS 13:56
PROVIDERS: PCP Internal Medicine
DX: L03.011 Cellulitis of right finger (principal)
CPT/HCPCS: 99203

== ENCOUNTER → 2025-04-23 13:56 | Outpatient (BNVA) | payer MEDICAID, SELFPAY | PROVIDERS: PCP Internal Medicine | DX: Z48.817 Encounter for surgical aftercare following surgery on the skin and subcutaneous tissue (principal); L03.011 Cellulitis of right finger | CPT/HCPCS: 99202 ==